=== PATIENT | female | born 1975 | race Hispanic/Latino ===

== ENCOUNTER 2023-06-14 06:49 | Day surgery (SDC) | payer OTHER ==
[~2023-06-14] VITALS: Ht 160 cm; Wt 59.0 kg
[2023-06-14] VITALS (11 sets, daily range): BP systolic 95–114; BP diastolic 51–67; PULSE 54–67; RESP 12–16
[2023-06-14] MEDS ORDERED: SIMETHICONE 40 MG/0.6 ML ML ONE (08:48)
[2023-06-14] MEDS ORDERED: LIDOCAINE HCL 1% 20 ML VIAL ONE (08:53)
[2023-06-14] MEDS ORDERED: PROPOFOL 10 MG/ML 20ML VIAL IV ONE (08:53)
== END 2023-06-14 10:20 | disposition home or self-care (01) ==
LOC: ENDO 06:49 → DAH 06:49 → ENDO 10:20
PROVIDERS: ATTEND Internal Medicine Gastroenterology
DX: Z12.11 Encounter for screening for malignant neoplasm of colon (principal); D12.2 Benign neoplasm of ascending colon; K64.8 Other hemorrhoids; K21.9 Gastro-esophageal reflux disease without esophagitis; E78.5 Hyperlipidemia, unspecified; Z79.01 Long term (current) use of anticoagulants; Z98.891 History of uterine scar from previous surgery; Z98.890 Other specified postprocedural states
CPT/HCPCS: 81025; 45385; J2704; A4620; A4215 ×2; A4223; A7002; A4222; A4221; A4663; A4216; J7030; A4606; J3490